=== PATIENT | male | born 1950 | race Caucasian/White ===

== ENCOUNTER 2017-01-27 09:22 | Outpatient (CLI) | payer MEDICARE, MEDICAID ==
[~2017-01-27 09:22] MED LIST: AMIT50TA3 PO; ATOR20TA66 PO; BISA10SU8 RC; CLOP75TA15 PO; DOCU-28 PO; FAMO-128 PO; FERR-106 PO; FLO0.4C PO; INSU100V5 SUBCUT; LYR75C PO; MAGN400O6 PO; MULT-38 PO; NA P133E4 RC; OXYC-134 PO; OXYC10TA57 PO; POTA20TA19 PO
== END 2017-01-27 23:59 | disposition home or self-care (01) ==
LOC: RAD 09:22
PROVIDERS: ATTEND Emergency Medicine
DX: E11.621 Type 2 diabetes mellitus with foot ulcer (principal); L97.419 Non-pressure chronic ulcer of right heel and midfoot with unspecified severity; L97.429 Non-pressure chronic ulcer of left heel and midfoot with unspecified severity; E11.22 Type 2 diabetes mellitus with diabetic chronic kidney disease; I12.9 Hypertensive chronic kidney disease with stage 1 through stage 4 chronic kidney disease, or unspecified chronic kidney disease; N18.9 Chronic kidney disease, unspecified; M86.171 Other acute osteomyelitis, right ankle and foot; M86.172 Other acute osteomyelitis, left ankle and foot; I70.25 Atherosclerosis of native arteries of other extremities with ulceration
CPT/HCPCS: 73718

== ENCOUNTER 2017-03-03 09:23 | Outpatient (CLI) | payer OTHER ==
[~2017-03-03 09:23] MED LIST changes: -FERR-106 PO; +FERR325T32 PO
== END 2017-03-03 23:59 | disposition home or self-care (01) ==
LOC: RAD 09:23
PROVIDERS: ATTEND Emergency Medicine
DX: S91.302D Unspecified open wound, left foot, subsequent encounter (principal); S91.301D Unspecified open wound, right foot, subsequent encounter; X58.XXXD Exposure to other specified factors, subsequent encounter
CPT/HCPCS: 78315; A9503

== ENCOUNTER 2017-04-29 09:59 | Inpatient (IN) | payer MEDICARE, MEDICAID ==
[~2017-04-29] VITALS: Ht 182.9 cm; Wt 81.8 kg
[2017-04-29] MEDS ORDERED: normal saline 1000ML IV soln IVB ONE (10:15)
[2017-04-29 10:54] LABS: BASOPHILS % (AUTO) 0.3 % (0-1); EOSINOPHILS # (AUTO) 0.2 X10'3 (0-0.9); EOSINOPHILS % (AUTO) 1.9 % (0-6); HEMATOCRIT 28.5 % (42.0-52.0); HEMOGLOBIN 9.3 g/dl (14.0-17.9); LYMPHOCYTES % (AUTO) 24.8 % (21-51); MEAN CORPUSCULAR HEMOGLOBIN 25.2 PG (27.0-31.0); MEAN CORPUSCULAR HGB CONC 32.5 % (33.0-36.5); MEAN CORPUSCULAR VOLUME 77.4 FL (78-98); MEAN PLATELET VOLUME 7.3 FL (7.4-10.4); MONOCYTES # (AUTO) 0.8 X10'3 (0-0.9); MONOCYTES % (AUTO) 9.6 % (2-12); NEUTROPHILS # (AUTO) 5.2 X10'3 (1.8-7.7); NEUTROPHILS % (AUTO) 63.4 % (42-75); PLATELET COUNT 190 X10'3 (140-440); RED BLOOD COUNT 3.69 X10'6 (4.70-6.10); RED CELL DISTRIBUTION WIDTH 17.1 % (11.5-14.5); WHITE BLOOD COUNT 8.2 X10'3 (4.5-11.0)
[2017-04-29 11:07] LABS: PARTIAL THROMBOPLASTIN TIME 33 SECONDS (22-32); PROTHROMBIN TIME 10.2 SECONDS (9.0-12.0)
[2017-04-29] MEDS ORDERED: NYSPWD TP (11:07)
[2017-04-29] MEDS ORDERED: LANTUS SQ (11:07)
[2017-04-29] MEDS ORDERED: PREG150C PO (11:07)
[2017-04-29] MEDS ORDERED: INSU100C10 SQ (11:07)
[2017-04-29] MEDS ORDERED: OXYC30TA88 PO (11:07)
[2017-04-29] MEDS ORDERED: METO-539 PO (11:07)
[2017-04-29] MEDS ORDERED: ONDA4TAB9 SL (11:07)
[2017-04-29 11:23] LABS: ALANINE AMINOTRANSFERASE 39 U/L (12-78); ALBUMIN 3.1 G/DL (3.4-5.0); ALBUMIN/GLOBULIN RATIO 0.5 (1.1-1.5); ALKALINE PHOSPHATASE 120 IU/L (46-116); ANION GAP 14 (8-16); ASPARTATE AMINO TRANSFERASE 36 U/L (10-37); BILIRUBIN,TOTAL 0.2 MG/DL (0.1-1.0); BLOOD UREA NITROGEN 90 MG/DL (7-18); BUN/CREATININE RATIO 29.8 (5.4-32.0); CALCIUM 9.3 MG/DL (8.5-10.1); CHLORIDE 108 MMOL/L (99-107); CREATININE 3.02 MG/DL (0.60-1.10); GLUCOSE 87 MG/DL (70-104); MAGNESIUM 2.1 MG/DL (1.5-2.4); SODIUM 136 MMOL/L (135-145); TOTAL PROTEIN 9.7 G/DL (6.4-8.2); eGFR 21 ML/MIN
[2017-04-29 11:32] LABS: POTASSIUM 6.5 MMOL/L (3.5-5.1); TOTAL CARBON DIOXIDE 13.8 MMOL/L (24-32)
[2017-04-29] MEDS ORDERED: potassium Cl 40MEQ/NS 500ml 500 ML IV PRN ×2 (12:00)
[2017-04-29] MEDS ORDERED: MORPHINE 2MG in 2ml NS syringe IV PRN (12:00)
[2017-04-29] MEDS ORDERED: magnesium 2GM in 50ml NS 50 ML IV PRN (12:00)
[2017-04-29] MEDS ORDERED: potassium Cl 20 mEq SR tablet PO PRN ×2 (12:00)
[2017-04-29] MEDS ORDERED: acetaminophen 325mg tablet PO PRN (12:00)
[2017-04-29] MEDS ORDERED: magnesium Cl slow-release 64mg tablet PO PRN (12:00)
[2017-04-29] MEDS ORDERED: dextrose 50%-water 50ml dispensing syringe IV PRN ×2 (12:00)
[2017-04-29] MEDS ORDERED: dextrose 50%-water 50ml dispensing syringe IV ONE (12:00)
[2017-04-29] MEDS ORDERED: insulin regular, human 10 units/0.1 ml syringe IV ONE (12:00)
[2017-04-29] MEDS ORDERED: nystatin 15 GM powder TP SCH (12:00)
[2017-04-29] MEDS ORDERED: glucagon, human recombinant 1mg kit SUBCUT PRN (12:00)
[2017-04-29] MEDS ORDERED: dextrose ORAL solution 15 GM/59 ML bottle PO PRN ×2 (12:00)
[2017-04-29] MEDS ORDERED: magnesium hydroxide 30ml (MOM) UD suspension PO PRN (12:00)
[2017-04-29] MEDS ORDERED: ondansetron/PF 4mg/2ml inj IV PRN (12:00)
[2017-04-29] MEDS ORDERED: bisacodyl 10mg suppository rectal RC PRN (12:00)
[2017-04-29] MEDS ORDERED: mag hydrox/Alum hydrox/simeth 30ml oral suspension PO PRN (12:00)
[2017-04-29] MEDS ORDERED: HYDROcodone/acetaminophen 5mg/325mg tablet PO PRN (12:00)
[2017-04-29] MEDS ORDERED: MESSAGE TO PHARMACY PO ONE (12:00)
[2017-04-29] MEDS ORDERED: sodium polystyrene sulfonate 15gm/60ml oral suspension PO ONE (12:00)
[2017-04-29] MEDS ORDERED: calcium chloride 100 MG/1 ML inj IV ONE (12:00)
[2017-04-29] MEDS ORDERED: insulin Lispro (HumaLOG) vial - multi-dose SQ SCH (12:00)
[2017-04-29] MEDS ORDERED: magnesium 4gm in 100ml NS 100 ML IV PRN (12:00)
[2017-04-29] MEDS: normal saline 1000ml 1,000 ML IV SCH ×2 (12:19→22:10)
[2017-04-29 12:46] LABS: HEMOGLOBIN A1C 7.3 % (4.5-6.2)
[2017-04-29] MEDS ORDERED: LIDOcaine 2% 10ml TOPICAL JELLY (Urojet) MM ONE (13:30)
[2017-04-29 14:12] LABS: CLARITY,URINE SLIGHTLY CLOUDY (Clear); COLOR,URINE STRAW (Yellow); GLUCOSE, URINE NEGATIVE (Neg); KETONES,URINE NEGATIVE (Neg); LEUKOCYTE ESTERASE ,URINE NEGATIVE (Neg); NITRITES, URINE NEGATIVE (Neg); OCCULT BLOOD,URINE TRACE-INTACT (Neg); PH,URINE 5.5 (4.8-8.0); PROTEIN,URINE TRACE mg/dl (Neg); UROBILINOGEN,URINE 0.2 E.U/dL (0.2-1.0)
[2017-04-29 14:14] LABS: UA COLLECTION TYPE FOLEY CATH
[2017-04-29 14:19] LABS: BACTERIA,URINE FEW /HPF (Neg); MUCUS STRANDS FEW /LPF (Neg); RBC,URINE 0-2 /HPF (0-2); SQUAMOUS EPITHELIAL CELL,UR FEW /LPF (FEW); WBC,URINE 0-4 /HPF (0-4)
[2017-04-29 19:15] VITALS: BP 118/53
[2017-04-29] MEDS: pregabalin 75mg capsule PO SCH (20:00)
[2017-04-29] MEDS ORDERED: temazepam 15mg capsule PO PRN (21:00)
[2017-04-29] MEDS: insulin glargine (Lantus) pen - multi-dose SQ SCH (21:00)
[2017-04-29] MEDS: heparin, porcine 5000 units/ml vial SQ SCH (22:09)
[2017-04-30] VITALS: BP 111/57
[2017-04-30 05:40] LABS: BASOPHILS % (AUTO) 0.4 % (0-1); EOSINOPHILS # (AUTO) 0.1 X10'3 (0-0.9); EOSINOPHILS % (AUTO) 2.3 % (0-6); HEMATOCRIT 23.8 % (42.0-52.0); HEMOGLOBIN 7.9 g/dl (14.0-17.9); LYMPHOCYTES % (AUTO) 37.3 % (21-51); MEAN CORPUSCULAR HGB CONC 33.4 % (33.0-36.5); MEAN CORPUSCULAR VOLUME 77.9 FL (78-98); MEAN PLATELET VOLUME 7.7 FL (7.4-10.4); MONOCYTES # (AUTO) 0.5 X10'3 (0-0.9); MONOCYTES % (AUTO) 9.2 % (2-12); NEUTROPHILS # (AUTO) 2.7 X10'3 (1.8-7.7); NEUTROPHILS % (AUTO) 50.8 % (42-75); PLATELET COUNT 125 X10'3 (140-440); RED BLOOD COUNT 3.06 X10'6 (4.70-6.10); RED CELL DISTRIBUTION WIDTH 16.8 % (11.5-14.5); WHITE BLOOD COUNT 5.3 X10'3 (4.5-11.0)
[2017-04-30] MEDS: oxyCODONE IR 5mg (immed. release) tablet PO PRN ×2 (05:53→15:05)
[2017-04-30 05:58] LABS: ALBUMIN 2.6 G/DL (3.4-5.0); ANION GAP 15 (8-16); BLOOD UREA NITROGEN 79 MG/DL (7-18); BUN/CREATININE RATIO 28.8 (5.4-32.0); CALCIUM 8.6 MG/DL (8.5-10.1); CHLORIDE 112 MMOL/L (99-107); CREATININE 2.74 MG/DL (0.60-1.10); GLUCOSE 97 MG/DL (70-104); MAGNESIUM 1.8 MG/DL (1.5-2.4); POTASSIUM 5.2 MMOL/L (3.5-5.1); SODIUM 139 MMOL/L (135-145); eGFR 23 ML/MIN
[2017-04-30 06:21] LABS: TOTAL CARBON DIOXIDE 11.8 MMOL/L (24-32)
[2017-04-30 07:00] VITALS: BP 111/53
[2017-04-30] MEDS: K and/or MAG REPLACEMENT MC SCH (08:00)
[2017-04-30] MEDS: pregabalin 75mg capsule PO SCH ×2 (10:04→22:23)
[2017-04-30] MEDS: heparin, porcine 5000 units/ml vial SQ SCH ×2 (10:06→22:17)
[2017-04-30] MEDS: normal saline 1000ml 1,000 ML IV SCH ×2 (10:12→17:58)
[2017-04-30 11:00] VITALS: BP 120/57
[2017-04-30] MEDS ORDERED: PREG150C PO (13:19)
[2017-04-30 20:00] VITALS: BP 124/63
[2017-04-30] MEDS: insulin glargine (Lantus) pen - multi-dose SQ SCH (21:00)
[2017-05-01] VITALS: BP 123/61
[2017-05-01] MEDS: normal saline 1000ml 1,000 ML IV SCH ×3 (01:17→21:03)
[2017-05-01] MEDS: oxyCODONE IR 5mg (immed. release) tablet PO PRN ×3 (05:57→20:46)
[2017-05-01 06:28] LABS: BASOPHILS % (AUTO) 0.5 % (0-1); EOSINOPHILS # (AUTO) 0.1 X10'3 (0-0.9); EOSINOPHILS % (AUTO) 2.3 % (0-6); HEMATOCRIT 23.8 % (42.0-52.0); HEMOGLOBIN 7.9 g/dl (14.0-17.9); LYMPHOCYTES # (AUTO) 2.2 X10'3 (1.1-4.8); LYMPHOCYTES % (AUTO) 42.3 % (21-51); MEAN CORPUSCULAR HEMOGLOBIN 25.8 PG (27.0-31.0); MEAN CORPUSCULAR HGB CONC 33.1 % (33.0-36.5); MEAN CORPUSCULAR VOLUME 77.8 FL (78-98); MEAN PLATELET VOLUME 7.8 FL (7.4-10.4); MONOCYTES # (AUTO) 0.5 X10'3 (0-0.9); MONOCYTES % (AUTO) 9.7 % (2-12); NEUTROPHILS # (AUTO) 2.3 X10'3 (1.8-7.7); NEUTROPHILS % (AUTO) 45.2 % (42-75); PLATELET COUNT 136 X10'3 (140-440); RED BLOOD COUNT 3.06 X10'6 (4.70-6.10); RED CELL DISTRIBUTION WIDTH 16.9 % (11.5-14.5); WHITE BLOOD COUNT 5.1 X10'3 (4.5-11.0)
[2017-05-01 06:49] LABS: ALBUMIN 2.6 G/DL (3.4-5.0); ANION GAP 14 (8-16); BLOOD UREA NITROGEN 71 MG/DL (7-18); BUN/CREATININE RATIO 27.8 (5.4-32.0); CALCIUM 8.5 MG/DL (8.5-10.1); CHLORIDE 113 MMOL/L (99-107); CREATININE 2.55 MG/DL (0.60-1.10); GLUCOSE 147 MG/DL (70-104); MAGNESIUM 1.7 MG/DL (1.5-2.4); POTASSIUM 4.1 MMOL/L (3.5-5.1); SODIUM 141 MMOL/L (135-145); eGFR 25 ML/MIN
[2017-05-01 07:20] LABS: TOTAL CARBON DIOXIDE 14.3 MMOL/L (24-32)
[2017-05-01 07:30] VITALS: BP 111/57
[2017-05-01] MEDS: K and/or MAG REPLACEMENT MC SCH (08:00)
[2017-05-01] MEDS: pregabalin 75mg capsule PO SCH ×2 (08:34→22:22)
[2017-05-01] MEDS: heparin, porcine 5000 units/ml vial SQ SCH ×2 (08:34→21:02)
[2017-05-01 12:14] VITALS: BP 132/67
[2017-05-01] MEDS: sodium bicarbonate 650mg tablet PO SCH ×2 (13:45→20:46)
[2017-05-01 18:30] VITALS: BP 113/61
[2017-05-01] MEDS: insulin glargine (Lantus) pen - multi-dose SQ SCH (22:23)
[2017-05-02] VITALS: BP 119/63
[2017-05-02] MEDS: oxyCODONE IR 5mg (immed. release) tablet PO PRN ×4 (03:32→16:54)
[2017-05-02 05:55] LABS: BASOPHILS % (AUTO) 0.6 % (0-1); EOSINOPHILS # (AUTO) 0.2 X10'3 (0-0.9); EOSINOPHILS % (AUTO) 4.3 % (0-6); HEMATOCRIT 23.6 % (42.0-52.0); HEMOGLOBIN 7.7 g/dl (14.0-17.9); LYMPHOCYTES # (AUTO) 1.8 X10'3 (1.1-4.8); LYMPHOCYTES % (AUTO) 35.7 % (21-51); MEAN CORPUSCULAR HEMOGLOBIN 25.7 PG (27.0-31.0); MEAN CORPUSCULAR HGB CONC 32.5 % (33.0-36.5); MEAN CORPUSCULAR VOLUME 78.9 FL (78-98); MEAN PLATELET VOLUME 7.8 FL (7.4-10.4); MONOCYTES # (AUTO) 0.4 X10'3 (0-0.9); MONOCYTES % (AUTO) 8.7 % (2-12); NEUTROPHILS # (AUTO) 2.5 X10'3 (1.8-7.7); NEUTROPHILS % (AUTO) 50.7 % (42-75); PLATELET COUNT 127 X10'3 (140-440); RED BLOOD COUNT 2.99 X10'6 (4.70-6.10); RED CELL DISTRIBUTION WIDTH 17.1 % (11.5-14.5)
[2017-05-02 06:46] LABS: ALBUMIN 2.5 G/DL (3.4-5.0); ANION GAP 14 (8-16); BLOOD UREA NITROGEN 60 MG/DL (7-18); BUN/CREATININE RATIO 25.8 (5.4-32.0); CALCIUM 8.4 MG/DL (8.5-10.1); CHLORIDE 112 MMOL/L (99-107); CREATININE 2.33 MG/DL (0.60-1.10); GLUCOSE 101 MG/DL (70-104); MAGNESIUM 1.6 MG/DL (1.5-2.4); POTASSIUM 3.4 MMOL/L (3.5-5.1); SODIUM 139 MMOL/L (135-145); eGFR 28 ML/MIN
[2017-05-02 06:58] LABS: TOTAL CARBON DIOXIDE 12.8 MMOL/L (24-32)
[2017-05-02 07:30] VITALS: BP 111/68
[2017-05-02] MEDS: sodium bicarbonate 650mg tablet PO SCH ×3 (07:50→20:34)
[2017-05-02] MEDS: heparin, porcine 5000 units/ml vial SQ SCH (07:52)
[2017-05-02] MEDS: K and/or MAG REPLACEMENT MC SCH (08:00)
[2017-05-02] MEDS: pregabalin 75mg capsule PO SCH ×2 (08:00→20:34)
[2017-05-02] MEDS: normal saline 1000ml 1,000 ML IV SCH (09:58)
[2017-05-02 11:00] VITALS: BP 142/67
[2017-05-02 18:00] VITALS: BP 129/70
[2017-05-02] MEDS: insulin glargine (Lantus) pen - multi-dose SQ SCH (21:00)
[2017-05-02 23:30] VITALS: BP 146/80
[2017-05-03 05:13] LABS: BASOPHILS % (AUTO) 0.5 % (0-1); EOSINOPHILS # (AUTO) 0.2 X10'3 (0-0.9); EOSINOPHILS % (AUTO) 3.4 % (0-6); HEMATOCRIT 22.2 % (42.0-52.0); HEMOGLOBIN 7.3 g/dl (14.0-17.9); LYMPHOCYTES % (AUTO) 41.3 % (21-51); MEAN CORPUSCULAR HEMOGLOBIN 25.7 PG (27.0-31.0); MEAN CORPUSCULAR HGB CONC 32.9 % (33.0-36.5); MEAN CORPUSCULAR VOLUME 78.1 FL (78-98); MEAN PLATELET VOLUME 7.9 FL (7.4-10.4); MONOCYTES # (AUTO) 0.4 X10'3 (0-0.9); MONOCYTES % (AUTO) 8.8 % (2-12); NEUTROPHILS # (AUTO) 2.2 X10'3 (1.8-7.7); PLATELET COUNT 129 X10'3 (140-440); RED BLOOD COUNT 2.84 X10'6 (4.70-6.10); RED CELL DISTRIBUTION WIDTH 16.7 % (11.5-14.5); WHITE BLOOD COUNT 4.7 X10'3 (4.5-11.0)
[2017-05-03 05:35] LABS: ALBUMIN 2.4 G/DL (3.4-5.0); ANION GAP 14 (8-16); BLOOD UREA NITROGEN 52 MG/DL (7-18); BUN/CREATININE RATIO 23.1 (5.4-32.0); CALCIUM 8.3 MG/DL (8.5-10.1); CHLORIDE 116 MMOL/L (99-107); CREATININE 2.25 MG/DL (0.60-1.10); GLUCOSE 136 MG/DL (70-104); MAGNESIUM 1.5 MG/DL (1.5-2.4); POTASSIUM 3.1 MMOL/L (3.5-5.1); SODIUM 143 MMOL/L (135-145); eGFR 29 ML/MIN
[2017-05-03 05:42] LABS: TOTAL CARBON DIOXIDE 13.3 MMOL/L (24-32)
[2017-05-03] MEDS ORDERED: normal saline 1000ml 1,000 ML IV SCH (06:05)
[2017-05-03] MEDS: K and/or MAG REPLACEMENT MC SCH (08:00)
[2017-05-03] MEDS: sodium bicarbonate 650mg tablet PO SCH ×3 (08:09→21:09)
[2017-05-03] MEDS: pregabalin 75mg capsule PO SCH ×2 (08:09→21:11)
[2017-05-03] MEDS: oxyCODONE IR 5mg (immed. release) tablet PO PRN ×3 (08:11→21:46)
[2017-05-03 08:18] VITALS: BP 141/76
[2017-05-03 11:30] VITALS: BP 111/57
[2017-05-03] MEDS ORDERED: potassium Cl 40MEQ/NS 500ml 500 ML IV PRN ×2 (11:55)
[2017-05-03] MEDS ORDERED: magnesium 4gm in 100ml NS 100 ML IV PRN (11:55)
[2017-05-03] MEDS ORDERED: magnesium Cl slow-release 64mg tablet PO PRN (11:55)
[2017-05-03] MEDS ORDERED: magnesium 2GM in 50ml NS 50 ML IV PRN (11:55)
[2017-05-03] MEDS: potassium Cl 20 mEq SR tablet PO PRN ×3 (13:19→21:11)
[2017-05-03 19:00] VITALS: BP 153/83
[2017-05-03] MEDS: insulin glargine (Lantus) pen - multi-dose SQ SCH (21:00)
[2017-05-04] VITALS: BP 119/64
[2017-05-04 05:11] LABS: BASOPHILS % (AUTO) 0.6 % (0-1); EOSINOPHILS # (AUTO) 0.1 X10'3 (0-0.9); EOSINOPHILS % (AUTO) 2.8 % (0-6); HEMATOCRIT 23.2 % (42.0-52.0); HEMOGLOBIN 7.6 g/dl (14.0-17.9); LYMPHOCYTES # (AUTO) 1.6 X10'3 (1.1-4.8); MEAN CORPUSCULAR HEMOGLOBIN 25.6 PG (27.0-31.0); MEAN CORPUSCULAR HGB CONC 32.9 % (33.0-36.5); MEAN CORPUSCULAR VOLUME 77.9 FL (78-98); MEAN PLATELET VOLUME 7.6 FL (7.4-10.4); MONOCYTES # (AUTO) 0.5 X10'3 (0-0.9); NEUTROPHILS # (AUTO) 2.8 X10'3 (1.8-7.7); NEUTROPHILS % (AUTO) 55.6 % (42-75); PLATELET COUNT 128 X10'3 (140-440); RED BLOOD COUNT 2.97 X10'6 (4.70-6.10); RED CELL DISTRIBUTION WIDTH 16.5 % (11.5-14.5)
[2017-05-04 05:24] LABS: ALBUMIN 2.5 G/DL (3.4-5.0); ANION GAP 16 (8-16); BLOOD UREA NITROGEN 44 MG/DL (7-18); BUN/CREATININE RATIO 19.9 (5.4-32.0); CALCIUM 8.4 MG/DL (8.5-10.1); CHLORIDE 114 MMOL/L (99-107); CREATININE 2.21 MG/DL (0.60-1.10); GLUCOSE 110 MG/DL (70-104); MAGNESIUM 1.5 MG/DL (1.5-2.4); POTASSIUM 3.2 MMOL/L (3.5-5.1); SODIUM 142 MMOL/L (135-145); eGFR 30 ML/MIN
[2017-05-04 05:26] LABS: TOTAL CARBON DIOXIDE 12.4 MMOL/L (24-32)
[2017-05-04 07:41] VITALS: BP 136/77
[2017-05-04] MEDS: sodium bicarbonate 650mg tablet PO SCH ×3 (07:58→20:22)
[2017-05-04] MEDS: pregabalin 75mg capsule PO SCH ×2 (07:59→20:22)
[2017-05-04] MEDS: potassium Cl 20 mEq SR tablet PO PRN ×3 (07:59→17:01)
[2017-05-04] MEDS: K and/or MAG REPLACEMENT MC SCH (08:00)
[2017-05-04 11:30] VITALS: BP 139/90
[2017-05-04] MEDS: oxyCODONE IR 5mg (immed. release) tablet PO PRN ×2 (12:37→20:27)
[2017-05-04] MEDS ORDERED: SODI650T29 PO (13:50)
[2017-05-04 18:30] VITALS: BP 155/86
[2017-05-04] MEDS: insulin glargine (Lantus) pen - multi-dose SQ SCH (20:57)
[2017-05-05] VITALS: BP 137/68
[2017-05-05 05:03] LABS: MAGNESIUM 1.5 MG/DL (1.5-2.4)
[2017-05-05 05:05] LABS: POTASSIUM 2.7 MMOL/L (3.5-5.1)
[2017-05-05 07:00] VITALS: BP 145/82
[2017-05-05] MEDS: K and/or MAG REPLACEMENT MC SCH (08:00)
[2017-05-05] MEDS: sodium bicarbonate 650mg tablet PO SCH ×2 (08:58→13:57)
[2017-05-05] MEDS: pregabalin 75mg capsule PO SCH (09:01)
[2017-05-05] MEDS: potassium Cl 20 mEq SR tablet PO PRN ×2 (09:05→12:42)
[2017-05-05 12:00] VITALS: BP 132/68
== END 2017-05-05 15:50 | disposition home health service (06) | DRG 682 ==
LOC: ER 09:59 → ED HOLD 11:58 → EDBEDREQ 18:22 → SUR 3N 19:11
PROVIDERS: ADMIT Internal Medicine; ATTEND Internal Medicine
DX: N17.9 Acute kidney failure, unspecified (principal); E43 Unspecified severe protein-calorie malnutrition; E87.2 Acidosis; E11.42 Type 2 diabetes mellitus with diabetic polyneuropathy; D68.69 Other thrombophilia; E11.22 Type 2 diabetes mellitus with diabetic chronic kidney disease; E87.5 Hyperkalemia; E86.0 Dehydration; G80.9 Cerebral palsy, unspecified; N18.4 Chronic kidney disease, stage 4 (severe); D50.9 Iron deficiency anemia, unspecified; E78.00 Pure hypercholesterolemia, unspecified; E78.5 Hyperlipidemia, unspecified; E87.6 Hypokalemia; F44.4 Conversion disorder with motor symptom or deficit; G89.4 Chronic pain syndrome; I12.9 Hypertensive chronic kidney disease with stage 1 through stage 4 chronic kidney disease, or unspecified chronic kidney disease; F32.9 Major depressive disorder, single episode, unspecified; F41.9 Anxiety disorder, unspecified; R79.89 Other specified abnormal findings of blood chemistry; G43.909 Migraine, unspecified, not intractable, without status migrainosus; M10.9 Gout, unspecified; M19.90 Unspecified osteoarthritis, unspecified site; Z68.24 Body mass index [BMI] 24.0-24.9, adult; Z88.6 Allergy status to analgesic agent; Z88.0 Allergy status to penicillin; Z88.1 Allergy status to other antibiotic agents; Z88.8 Allergy status to other drugs, medicaments and biological substances; Z79.4 Long term (current) use of insulin; Z87.11 Personal history of peptic ulcer disease; Z87.442 Personal history of urinary calculi; Z86.14 Personal history of Methicillin resistant Staphylococcus aureus infection
CPT/HCPCS: 36415; 71045; 76775; 80048; 80053; 81001; 82948; 83036; 83605; 83735; 84132; 84145; 85025; 85610; 85730; 87040; 87070; 93005; 96360; 99285; A4315; A4353; A6212; A6213; A6223; A6253; A6255; A6446; A6449; J1644; J1815; J3480; J7030

== ENCOUNTER 2017-05-05 17:54 | Inpatient (IN) | payer MEDICARE, MEDICAID ==
[~2017-05-05] VITALS: Ht 182.9 cm; Wt 100.0 kg
[~2017-05-05 17:54] MED LIST changes: -AMIT50TA3 PO; -ATOR20TA66 PO; -BISA10SU8 RC; -CLOP75TA15 PO; -DOCU-28 PO; -FAMO-128 PO; -FERR325T32 PO; -FLO0.4C PO; +INSU100C10 SQ; -INSU100V5 SUBCUT; +LANTUS SQ; -LYR75C PO; -MAGN400O6 PO; +METO-539 PO; -MULT-38 PO; -NA P133E4 RC; +NYSPWD TP; +ONDA4TAB9 SL; -OXYC-134 PO; -OXYC10TA57 PO; +OXYC30TA88 PO; -POTA20TA19 PO; +PREG150C PO; +SODI650T29 PO
[2017-05-05 18:45] LABS: ALANINE AMINOTRANSFERASE 21 U/L (12-78); ALBUMIN 2.8 G/DL (3.4-5.0); ALBUMIN/GLOBULIN RATIO 0.4 (1.1-1.5); ALKALINE PHOSPHATASE 99 IU/L (46-116); ANION GAP 18 (8-16); ASPARTATE AMINO TRANSFERASE 20 U/L (10-37); BILIRUBIN,TOTAL 0.3 MG/DL (0.1-1.0); BLOOD UREA NITROGEN 47 MG/DL (7-18); BUN/CREATININE RATIO 19.7 (5.4-32.0); CALCIUM 8.7 MG/DL (8.5-10.1); CHLORIDE 112 MMOL/L (99-107); CREATININE 2.39 MG/DL (0.60-1.10); GLUCOSE 133 MG/DL (70-104); SODIUM 141 MMOL/L (135-145); TOTAL PROTEIN 9.1 G/DL (6.4-8.2); eGFR 27 ML/MIN
[2017-05-05 18:48] LABS: POTASSIUM 2.7 MMOL/L (3.5-5.1); TOTAL CARBON DIOXIDE 10.6 MMOL/L (24-32)
[2017-05-05 19:01] LABS: MAGNESIUM 1.6 MG/DL (1.5-2.4)
[2017-05-05] MEDS: potassium 10mEq/100ml NS w/LIDOcaine (10mg/bag) IV SCH ×2 (19:12→20:02)
[2017-05-05 19:13] LABS: BASOPHILS % (AUTO) 0.4 % (0-1); EOSINOPHILS # (AUTO) 0.2 X10'3 (0-0.9); HEMATOCRIT 27.3 % (42.0-52.0); HEMOGLOBIN 9.1 g/dl (14.0-17.9); LYMPHOCYTES # (AUTO) 2.4 X10'3 (1.1-4.8); LYMPHOCYTES % (AUTO) 26.9 % (21-51); MEAN CORPUSCULAR HEMOGLOBIN 25.5 PG (27.0-31.0); MEAN CORPUSCULAR HGB CONC 33.1 % (33.0-36.5); MONOCYTES # (AUTO) 0.7 X10'3 (0-0.9); MONOCYTES % (AUTO) 7.9 % (2-12); NEUTROPHILS # (AUTO) 5.7 X10'3 (1.8-7.7); NEUTROPHILS % (AUTO) 62.8 % (42-75); PLATELET COUNT 173 X10'3 (140-440); RED BLOOD COUNT 3.55 X10'6 (4.70-6.10); RED CELL DISTRIBUTION WIDTH 17.4 % (11.5-14.5)
[2017-05-05 19:20] LABS: ABG BASE EXCESS -17.3 mmol/L (-2.0-3.0); ABG OXYGEN SATURATION 94.2 % (95-98); ABG PCO2 (T) 28.8 mmHg (35.0-48.0); ABG PH (T) 7.158 (7.350-7.450); ABG PO2 (T) 78.7 mmHg (83-108); FCOHb 0.6 % (0.5-1.5); FMetHb 0.3 % (0.3-1.12); FO2Hb 93.4 % (94-100); PATIENT TEMPERATURE 36.8; TOTAL HEMOGLOBIN 9.4 G/dl (14.0-18.0)
[2017-05-05] MEDS ORDERED: normal saline 1000ML IV soln IVB ONE (19:25)
[2017-05-05] MEDS ORDERED: potassium Cl 20 mEq SR tablet PO PRN (21:15)
[2017-05-05] MEDS ORDERED: nystatin 15 GM powder TP SCH (21:15)
[2017-05-05] MEDS ORDERED: acetaminophen 325mg tablet PO PRN (21:15)
[2017-05-05] MEDS ORDERED: ondansetron/PF 4mg/2ml inj IV PRN (21:15)
[2017-05-05 22:50] VITALS: BP 132/64
[2017-05-05] MEDS: sodium bicarbonate (8.4%) inj. 150 MEQ in sodium chloride 0.45% 1,000 ML IV SCH (23:25)
[2017-05-05] MEDS: potassium Cl 40MEQ/NS 500ml 500 ML IV PRN (23:33)
[2017-05-06] MEDS: ondansetron 4mg rapidly disintigrating tab PO SCH ×6 (01:03→22:14)
[2017-05-06] MEDS: heparin, porcine 5000 units/ml vial SQ SCH ×3 (01:03→17:51)
[2017-05-06] MEDS: potassium Cl 40MEQ/NS 500ml 500 ML IV PRN ×3 (03:43→17:49)
[2017-05-06 08:00] VITALS: BP 134/73
[2017-05-06] MEDS: K and/or MAG REPLACEMENT MC SCH (08:16)
[2017-05-06] MEDS: metoprolol succinate 25mg (24-HOUR) SR. Tablet PO SCH ×2 (08:31→22:14)
[2017-05-06] MEDS: pregabalin 75mg capsule PO SCH ×2 (08:34→22:13)
[2017-05-06] MEDS: oxyCODONE IR 5mg (immed. release) tablet PO PRN (08:35)
[2017-05-06 10:12] LABS: BASOPHILS % (AUTO) 0.3 % (0-1); EOSINOPHILS # (AUTO) 0.1 X10'3 (0-0.9); EOSINOPHILS % (AUTO) 1.7 % (0-6); HEMOGLOBIN 8.3 g/dl (14.0-17.9); LYMPHOCYTES # (AUTO) 1.6 X10'3 (1.1-4.8); LYMPHOCYTES % (AUTO) 22.3 % (21-51); MEAN CORPUSCULAR HEMOGLOBIN 25.8 PG (27.0-31.0); MEAN CORPUSCULAR HGB CONC 33.4 % (33.0-36.5); MEAN CORPUSCULAR VOLUME 77.3 FL (78-98); MEAN PLATELET VOLUME 7.4 FL (7.4-10.4); MONOCYTES # (AUTO) 0.5 X10'3 (0-0.9); MONOCYTES % (AUTO) 7.5 % (2-12); NEUTROPHILS # (AUTO) 4.8 X10'3 (1.8-7.7); NEUTROPHILS % (AUTO) 68.2 % (42-75); PLATELET COUNT 154 X10'3 (140-440); RED BLOOD COUNT 3.23 X10'6 (4.70-6.10); RED CELL DISTRIBUTION WIDTH 17.4 % (11.5-14.5); WHITE BLOOD COUNT 7.1 X10'3 (4.5-11.0)
[2017-05-06 10:23] LABS: ALBUMIN 2.6 G/DL (3.4-5.0); ANION GAP 14 (8-16); BLOOD UREA NITROGEN 47 MG/DL (7-18); BUN/CREATININE RATIO 20.9 (5.4-32.0); CALCIUM 8.5 MG/DL (8.5-10.1); CHLORIDE 116 MMOL/L (99-107); CREATININE 2.25 MG/DL (0.60-1.10); SODIUM 143 MMOL/L (135-145); eGFR 29 ML/MIN
[2017-05-06 10:27] LABS: TOTAL CARBON DIOXIDE 12.7 MMOL/L (24-32)
[2017-05-06] MEDS: sodium bicarbonate (8.4%) inj. 150 MEQ in sodium chloride 0.45% 1,000 ML IV SCH ×2 (10:27→20:15)
[2017-05-06 10:28] LABS: GLUCOSE 103 MG/DL (70-104)
[2017-05-06 11:30] VITALS: BP 147/73
[2017-05-06] MEDS: vancomycin inj 1,250 MG in normal saline 250ml IV soln 250 ML IV SCH (17:00)
[2017-05-06] MEDS: levoFLOXACIN-Levaquin 250mg/D5 50 ML IV SCH (17:51)
[2017-05-06 20:00] VITALS: BP 125/67
[2017-05-06] MEDS: insulin glargine (Lantus) pen - multi-dose SQ SCH (21:00)
[2017-05-06] MEDS: docusate sod 100mg capsule PO SCH (22:13)
[2017-05-06] MEDS: diatr meglu/diatrizoate 30ml oral sol.-(3 dose) bottle PO SCH (22:14)
[2017-05-06] MEDS: magnesium hydroxide 30ml (MOM) UD suspension PO SCH (22:14)
[2017-05-07] VITALS (12 sets, daily range): BP systolic 105–138; BP diastolic 52–112
[2017-05-07] MEDS: heparin, porcine 5000 units/ml vial SQ SCH ×3 (00:18→17:00)
[2017-05-07] MEDS: ondansetron 4mg rapidly disintigrating tab PO SCH ×6 (04:00→20:07)
[2017-05-07] MEDS: sodium bicarbonate (8.4%) inj. 150 MEQ in sodium chloride 0.45% 1,000 ML IV SCH ×3 (05:39→23:09)
[2017-05-07 06:12] LABS: BASOPHILS % (AUTO) 0.8 % (0-1); EOSINOPHILS # (AUTO) 0.2 X10'3 (0-0.9); EOSINOPHILS % (AUTO) 3.3 % (0-6); HEMOGLOBIN 7.3 g/dl (14.0-17.9); LYMPHOCYTES # (AUTO) 2.4 X10'3 (1.1-4.8); MEAN CORPUSCULAR HEMOGLOBIN 25.8 PG (27.0-31.0); MEAN CORPUSCULAR HGB CONC 32.9 % (33.0-36.5); MEAN CORPUSCULAR VOLUME 78.2 FL (78-98); MEAN PLATELET VOLUME 7.8 FL (7.4-10.4); MONOCYTES # (AUTO) 0.5 X10'3 (0-0.9); NEUTROPHILS # (AUTO) 2.4 X10'3 (1.8-7.7); NEUTROPHILS % (AUTO) 43.9 % (42-75); PLATELET COUNT 145 X10'3 (140-440); RED BLOOD COUNT 2.82 X10'6 (4.70-6.10); RED CELL DISTRIBUTION WIDTH 17.5 % (11.5-14.5); WHITE BLOOD COUNT 5.5 X10'3 (4.5-11.0)
[2017-05-07 06:23] LABS: ALBUMIN 2.1 G/DL (3.4-5.0); ANION GAP 16 (8-16); BLOOD UREA NITROGEN 43 MG/DL (7-18); BUN/CREATININE RATIO 19.2 (5.4-32.0); CHLORIDE 116 MMOL/L (99-107); CREATININE 2.24 MG/DL (0.60-1.10); GLUCOSE 79 MG/DL (70-104); SODIUM 145 MMOL/L (135-145); eGFR 30 ML/MIN
[2017-05-07] MEDS ORDERED: insulin Lispro (HumaLOG) vial - multi-dose SQ SCH (07:20)
[2017-05-07] MEDS ORDERED: glucagon, human recombinant 1mg kit SUBCUT PRN (07:20)
[2017-05-07] MEDS ORDERED: dextrose ORAL solution 15 GM/59 ML bottle PO PRN (07:20)
[2017-05-07] MEDS ORDERED: MESSAGE TO PHARMACY PO ONE (07:20)
[2017-05-07] MEDS ORDERED: dextrose 50%-water 50ml dispensing syringe IV PRN ×2 (07:20)
[2017-05-07] MEDS ORDERED: insulin regular, human vial - multi-dose SQ SCH (07:20)
[2017-05-07] MEDS: diatr meglu/diatrizoate 30ml oral sol.-(3 dose) bottle PO SCH ×2 (07:27→10:03)
[2017-05-07] MEDS: levoFLOXACIN-Levaquin 250mg/D5 50 ML IV SCH (07:33)
[2017-05-07] MEDS: magnesium hydroxide 30ml (MOM) UD suspension PO SCH ×2 (07:37→20:08)
[2017-05-07] MEDS: potassium Cl 20 mEq SR tablet PO PRN ×3 (07:38→20:08)
[2017-05-07] MEDS: docusate sod 100mg capsule PO SCH ×2 (07:38→20:07)
[2017-05-07] MEDS: pregabalin 75mg capsule PO SCH ×2 (07:39→20:07)
[2017-05-07] MEDS: metoprolol succinate 25mg (24-HOUR) SR. Tablet PO SCH ×2 (07:39→20:08)
[2017-05-07] MEDS: dextrose ORAL solution 15 GM/59 ML bottle PO PRN (07:41)
[2017-05-07] MEDS: oxyCODONE IR 5mg (immed. release) tablet PO PRN ×3 (07:43→08:56)
[2017-05-07] MEDS: K and/or MAG REPLACEMENT MC SCH (07:48)
[2017-05-07] MEDS ORDERED: acetaminophen 325mg tablet PO ONE (09:30)
[2017-05-07] MEDS ORDERED: furosemide 40mg/4ml inj IV ONE (11:30)
[2017-05-07] MEDS ORDERED: neostigmine methylsulfate 1 MG/ML 10ml vial IV ONE (15:40)
[2017-05-07] MEDS: vancomycin inj 1,250 MG in normal saline 250ml IV soln 250 ML IV SCH (17:25)
[2017-05-07] MEDS: insulin glargine (Lantus) pen - multi-dose SQ SCH ×2 (21:00)
[2017-05-08] VITALS: BP 120/63
[2017-05-08] MEDS: potassium Cl 20 mEq SR tablet PO PRN ×3 (00:33→22:19)
[2017-05-08] MEDS: ondansetron 4mg rapidly disintigrating tab PO SCH ×7 (00:34→23:57)
[2017-05-08] MEDS: heparin, porcine 5000 units/ml vial SQ SCH ×4 (00:35→23:56)
[2017-05-08] MEDS: oxyCODONE IR 5mg (immed. release) tablet PO PRN ×3 (01:06→22:28)
[2017-05-08 07:43] VITALS: BP 130/68
[2017-05-08] MEDS: K and/or MAG REPLACEMENT MC SCH (08:00)
[2017-05-08 08:35] LABS: BASOPHILS % (AUTO) 0.7 % (0-1); EOSINOPHILS # (AUTO) 0.1 X10'3 (0-0.9); HEMATOCRIT 25.1 % (42.0-52.0); HEMOGLOBIN 8.5 g/dl (14.0-17.9); LYMPHOCYTES # (AUTO) 1.7 X10'3 (1.1-4.8); LYMPHOCYTES % (AUTO) 35.6 % (21-51); MEAN CORPUSCULAR HEMOGLOBIN 26.6 PG (27.0-31.0); MEAN CORPUSCULAR HGB CONC 33.9 % (33.0-36.5); MEAN CORPUSCULAR VOLUME 78.5 FL (78-98); MEAN PLATELET VOLUME 7.5 FL (7.4-10.4); MONOCYTES # (AUTO) 0.4 X10'3 (0-0.9); MONOCYTES % (AUTO) 8.6 % (2-12); NEUTROPHILS # (AUTO) 2.5 X10'3 (1.8-7.7); NEUTROPHILS % (AUTO) 53.1 % (42-75); PLATELET COUNT 153 X10'3 (140-440); RED CELL DISTRIBUTION WIDTH 16.4 % (11.5-14.5); WHITE BLOOD COUNT 4.7 X10'3 (4.5-11.0)
[2017-05-08 08:44] LABS: ALBUMIN 2.3 G/DL (3.4-5.0); ANION GAP 11 (8-16); BLOOD UREA NITROGEN 36 MG/DL (7-18); BUN/CREATININE RATIO 17.1 (5.4-32.0); CALCIUM 7.9 MG/DL (8.5-10.1); CHLORIDE 113 MMOL/L (99-107); GLUCOSE 80 MG/DL (70-104); POTASSIUM 3.3 MMOL/L (3.5-5.1); SODIUM 144 MMOL/L (135-145); TOTAL CARBON DIOXIDE 20.5 MMOL/L (24-32); eGFR 32 ML/MIN
[2017-05-08] MEDS: levoFLOXACIN-Levaquin 250mg/D5 50 ML IV SCH (09:08)
[2017-05-08] MEDS: pregabalin 75mg capsule PO SCH ×2 (09:12→20:50)
[2017-05-08] MEDS: docusate sod 100mg capsule PO SCH ×2 (09:12→20:50)
[2017-05-08] MEDS: metoprolol succinate 25mg (24-HOUR) SR. Tablet PO SCH ×2 (09:13→20:50)
[2017-05-08] MEDS: magnesium hydroxide 30ml (MOM) UD suspension PO SCH ×2 (09:13→20:50)
[2017-05-08] MEDS: dextrose ORAL solution 15 GM/59 ML bottle PO PRN (12:33)
[2017-05-08 14:00] VITALS: BP 149/85
[2017-05-08] MEDS: sodium bicarbonate (8.4%) inj. 150 MEQ in sodium chloride 0.45% 1,000 ML IV SCH (15:18)
[2017-05-08] MEDS: vancomycin inj 1,250 MG in normal saline 250ml IV soln 250 ML IV SCH (17:36)
[2017-05-08 20:00] VITALS: BP 156/94
[2017-05-08] MEDS ORDERED: neostigmine methylsulfate 1 MG/ML 10ml vial IV SCH (20:00)
[2017-05-08] MEDS: insulin glargine (Lantus) pen - multi-dose SQ SCH ×2 (21:00)
[2017-05-08] MEDS ORDERED: potassium Cl 40MEQ/NS 500ml 500 ML IV PRN ×2 (22:15)
[2017-05-09] VITALS: BP 123/74
[2017-05-09] MEDS: potassium Cl 20 mEq SR tablet PO PRN (02:34)
[2017-05-09] MEDS: sodium bicarbonate (8.4%) inj. 150 MEQ in sodium chloride 0.45% 1,000 ML IV SCH (02:38)
[2017-05-09] MEDS: ondansetron 4mg rapidly disintigrating tab PO SCH ×6 (03:05→23:52)
[2017-05-09 03:21] LABS: BASOPHILS % (AUTO) 0.6 % (0-1); EOSINOPHILS # (AUTO) 0.1 X10'3 (0-0.9); EOSINOPHILS % (AUTO) 2.1 % (0-6); HEMATOCRIT 26.3 % (42.0-52.0); HEMOGLOBIN 8.8 g/dl (14.0-17.9); LYMPHOCYTES # (AUTO) 2.5 X10'3 (1.1-4.8); LYMPHOCYTES % (AUTO) 39.2 % (21-51); MEAN CORPUSCULAR HEMOGLOBIN 26.4 PG (27.0-31.0); MEAN CORPUSCULAR HGB CONC 33.6 % (33.0-36.5); MEAN CORPUSCULAR VOLUME 78.7 FL (78-98); MONOCYTES # (AUTO) 0.6 X10'3 (0-0.9); MONOCYTES % (AUTO) 9.5 % (2-12); NEUTROPHILS # (AUTO) 3.1 X10'3 (1.8-7.7); NEUTROPHILS % (AUTO) 48.6 % (42-75); PLATELET COUNT 177 X10'3 (140-440); RED BLOOD COUNT 3.34 X10'6 (4.70-6.10); RED CELL DISTRIBUTION WIDTH 16.5 % (11.5-14.5); WHITE BLOOD COUNT 6.3 X10'3 (4.5-11.0)
[2017-05-09 03:30] LABS: ALBUMIN 2.2 G/DL (3.4-5.0); ANION GAP 10 (8-16); BLOOD UREA NITROGEN 29 MG/DL (7-18); BUN/CREATININE RATIO 14.2 (5.4-32.0); CALCIUM 7.6 MG/DL (8.5-10.1); CHLORIDE 108 MMOL/L (99-107); CREATININE 2.04 MG/DL (0.60-1.10); GLUCOSE 101 MG/DL (70-104); MAGNESIUM 1.7 MG/DL (1.5-2.4); POTASSIUM 3.5 MMOL/L (3.5-5.1); SODIUM 143 MMOL/L (135-145); TOTAL CARBON DIOXIDE 25.4 MMOL/L (24-32); eGFR 33 ML/MIN
[2017-05-09 08:00] VITALS: BP 124/71
[2017-05-09] MEDS: K and/or MAG REPLACEMENT MC SCH (08:00)
[2017-05-09] MEDS: magnesium hydroxide 30ml (MOM) UD suspension PO SCH ×2 (08:00→19:33)
[2017-05-09] MEDS: docusate sod 100mg capsule PO SCH ×2 (08:00→19:34)
[2017-05-09] MEDS: metoprolol succinate 25mg (24-HOUR) SR. Tablet PO SCH ×2 (08:30→19:34)
[2017-05-09] MEDS: heparin, porcine 5000 units/ml vial SQ SCH ×3 (08:31→23:52)
[2017-05-09] MEDS: pregabalin 75mg capsule PO SCH ×2 (08:31→19:34)
[2017-05-09] MEDS: oxyCODONE IR 5mg (immed. release) tablet PO PRN ×2 (08:32→19:34)
[2017-05-09 11:00] VITALS: BP 125/71
[2017-05-09] MEDS ORDERED: levoFLOXACIN 250mg tablet PO SCH (11:00)
[2017-05-09] MEDS ORDERED: VANCOMYCIN LEVEL IV ONE (16:30)
[2017-05-09] MEDS: vancomycin inj 1,250 MG in normal saline 250ml IV soln 250 ML IV SCH (17:00)
[2017-05-09] MEDS: NUT.TX.GLUC.INTOLER,LAC-FR,REG (BOOST GLUCOSE CONTROL) 237 ML PO SCH (18:00)
[2017-05-09 19:00] VITALS: BP 132/61
[2017-05-09] MEDS: lactobacillus rhamnosus 10,000 MMU CELLS/CAPSULE PO SCH (19:34)
[2017-05-09] MEDS: insulin glargine (Lantus) pen - multi-dose SQ SCH ×2 (21:00)
[2017-05-09 23:30] VITALS: BP 144/77
[2017-05-10] MEDS: oxyCODONE IR 5mg (immed. release) tablet PO PRN ×3 (01:43→20:11)
[2017-05-10] MEDS: ondansetron 4mg rapidly disintigrating tab PO SCH ×6 (03:14→23:08)
[2017-05-10 03:35] LABS: BASOPHILS % (AUTO) 0.1 % (0-1); EOSINOPHILS # (AUTO) 0.1 X10'3 (0-0.9); EOSINOPHILS % (AUTO) 2.3 % (0-6); HEMOGLOBIN 8.3 g/dl (14.0-17.9); LYMPHOCYTES # (AUTO) 2.5 X10'3 (1.1-4.8); LYMPHOCYTES % (AUTO) 39.1 % (21-51); MEAN CORPUSCULAR HEMOGLOBIN 26.6 PG (27.0-31.0); MEAN CORPUSCULAR HGB CONC 33.1 % (33.0-36.5); MEAN CORPUSCULAR VOLUME 80.1 FL (78-98); MEAN PLATELET VOLUME 7.4 FL (7.4-10.4); MONOCYTES # (AUTO) 0.6 X10'3 (0-0.9); MONOCYTES % (AUTO) 9.6 % (2-12); NEUTROPHILS # (AUTO) 3.1 X10'3 (1.8-7.7); NEUTROPHILS % (AUTO) 48.9 % (42-75); PLATELET COUNT 151 X10'3 (140-440); RED BLOOD COUNT 3.12 X10'6 (4.70-6.10); RED CELL DISTRIBUTION WIDTH 16.8 % (11.5-14.5); WHITE BLOOD COUNT 6.3 X10'3 (4.5-11.0)
[2017-05-10 03:45] LABS: ALBUMIN 2.2 G/DL (3.4-5.0); ANION GAP 4 (8-16); BLOOD UREA NITROGEN 24 MG/DL (7-18); BUN/CREATININE RATIO 11.9 (5.4-32.0); CALCIUM 7.8 MG/DL (8.5-10.1); CHLORIDE 106 MMOL/L (99-107); CREATININE 2.02 MG/DL (0.60-1.10); GLUCOSE 141 MG/DL (70-104); MAGNESIUM 1.7 MG/DL (1.5-2.4); SODIUM 140 MMOL/L (135-145); TOTAL CARBON DIOXIDE 30.2 MMOL/L (24-32); eGFR 33 ML/MIN
[2017-05-10 03:52] LABS: POTASSIUM 3.7 MMOL/L (3.5-5.1)
[2017-05-10 07:00] VITALS: BP 130/71
[2017-05-10] MEDS: NUT.TX.GLUC.INTOLER,LAC-FR,REG (BOOST GLUCOSE CONTROL) 237 ML PO SCH ×3 (08:00→18:42)
[2017-05-10] MEDS: K and/or MAG REPLACEMENT MC SCH (08:00)
[2017-05-10] MEDS: magnesium hydroxide 30ml (MOM) UD suspension PO SCH ×2 (09:38→20:00)
[2017-05-10] MEDS: docusate sod 100mg capsule PO SCH ×2 (09:39→20:11)
[2017-05-10] MEDS: metoprolol succinate 25mg (24-HOUR) SR. Tablet PO SCH ×2 (09:42→20:12)
[2017-05-10] MEDS: pregabalin 75mg capsule PO SCH ×2 (09:44→20:11)
[2017-05-10] MEDS: lactobacillus rhamnosus 10,000 MMU CELLS/CAPSULE PO SCH ×2 (09:44→20:12)
[2017-05-10] MEDS: heparin, porcine 5000 units/ml vial SQ SCH ×3 (09:49→23:09)
[2017-05-10 12:16] VITALS: BP 126/70
[2017-05-10] MEDS ORDERED: vancomycin/NS 1 GM ADD-VANTAGE 250 ML IV SCH (17:00)
[2017-05-10 19:55] VITALS: BP 157/86
[2017-05-10] MEDS: insulin glargine (Lantus) pen - multi-dose SQ SCH ×2 (21:00→21:14)
[2017-05-11] VITALS: BP 137/76
[2017-05-11] MEDS: ondansetron 4mg rapidly disintigrating tab PO SCH ×3 (03:08→12:15)
[2017-05-11 03:44] LABS: POTASSIUM 2.9 MMOL/L (3.5-5.1)
[2017-05-11] MEDS: potassium Cl 20 mEq SR tablet PO PRN ×3 (04:01→13:51)
[2017-05-11] MEDS: oxyCODONE IR 5mg (immed. release) tablet PO PRN ×2 (04:09→12:38)
[2017-05-11 04:43] LABS: OSMOLALITY UA 309 MOSM/K (50-1400)
[2017-05-11 07:34] VITALS: BP 133/65
[2017-05-11] MEDS: magnesium hydroxide 30ml (MOM) UD suspension PO SCH (08:00)
[2017-05-11] MEDS: K and/or MAG REPLACEMENT MC SCH (08:00)
[2017-05-11] MEDS: NUT.TX.GLUC.INTOLER,LAC-FR,REG (BOOST GLUCOSE CONTROL) 237 ML PO SCH ×2 (08:00→13:15)
[2017-05-11] MEDS: metoprolol succinate 25mg (24-HOUR) SR. Tablet PO SCH (09:28)
[2017-05-11] MEDS: docusate sod 100mg capsule PO SCH (09:29)
[2017-05-11] MEDS: pregabalin 75mg capsule PO SCH (09:29)
[2017-05-11] MEDS: lactobacillus rhamnosus 10,000 MMU CELLS/CAPSULE PO SCH (09:30)
[2017-05-11] MEDS: heparin, porcine 5000 units/ml vial SQ SCH (09:32)
[2017-05-11 11:09] LABS: ALBUMIN 2.1 G/DL (3.4-5.0); ANION GAP 6 (8-16); BLOOD UREA NITROGEN 25 MG/DL (7-18); BUN/CREATININE RATIO 11.8 (5.4-32.0); CALCIUM 7.8 MG/DL (8.5-10.1); CHLORIDE 103 MMOL/L (99-107); CREATININE 2.12 MG/DL (0.60-1.10); GLUCOSE 158 MG/DL (70-104); POTASSIUM 3.4 MMOL/L (3.5-5.1); SODIUM 138 MMOL/L (135-145); TOTAL CARBON DIOXIDE 29.1 MMOL/L (24-32); eGFR 32 ML/MIN
[2017-05-11 11:52] VITALS: BP 109/70
[2017-05-11] MEDS ORDERED: POTA10TA19 PO (12:34)
[2017-05-13] MEDS ORDERED: VANCOMYCIN LEVEL IV NR (16:30)
== END 2017-05-11 16:21 | disposition home health service (06) | DRG 812 ==
LOC: ER 17:55 → ED HOLD 21:13 → EDBEDREQ 22:25 → SUR 3N 22:50 → CMPBEDREQ 23:48
PROVIDERS: ADMIT Family Medicine; ATTEND Legal Medicine
PROC: 30233N1 Transfusion of Nonautologous Red Blood Cells into Peripheral Vein, Percutaneous Approach (ICD-10-PCS; principal; 2017-05-07)
DX: D50.9 Iron deficiency anemia, unspecified (principal); N17.9 Acute kidney failure, unspecified; E87.2 Acidosis; D68.59 Other primary thrombophilia; E11.22 Type 2 diabetes mellitus with diabetic chronic kidney disease; E11.42 Type 2 diabetes mellitus with diabetic polyneuropathy; E11.69 Type 2 diabetes mellitus with other specified complication; E44.1 Mild protein-calorie malnutrition; M86.68 Other chronic osteomyelitis, other site; L02.818 Cutaneous abscess of other sites; E87.6 Hypokalemia; E78.5 Hyperlipidemia, unspecified; F44.4 Conversion disorder with motor symptom or deficit; I12.9 Hypertensive chronic kidney disease with stage 1 through stage 4 chronic kidney disease, or unspecified chronic kidney disease; F32.9 Major depressive disorder, single episode, unspecified; G43.909 Migraine, unspecified, not intractable, without status migrainosus; K59.09 Other constipation; G89.29 Other chronic pain; M10.9 Gout, unspecified; K63.89 Other specified diseases of intestine; N18.2 Chronic kidney disease, stage 2 (mild); E83.42 Hypomagnesemia; M19.90 Unspecified osteoarthritis, unspecified site; E78.00 Pure hypercholesterolemia, unspecified; G80.9 Cerebral palsy, unspecified; Z74.01 Bed confinement status; Z88.6 Allergy status to analgesic agent; Z88.1 Allergy status to other antibiotic agents; Z88.0 Allergy status to penicillin; Z88.8 Allergy status to other drugs, medicaments and biological substances; Z79.4 Long term (current) use of insulin; Z79.899 Other long term (current) drug therapy; Z87.11 Personal history of peptic ulcer disease; Z87.442 Personal history of urinary calculi; Z82.49 Family history of ischemic heart disease and other diseases of the circulatory system; Z68.29 Body mass index [BMI] 29.0-29.9, adult
CPT/HCPCS: 36415; 36600; 74018; 74176; 80048; 80053; 80202; 82803; 82948; 83605; 83735; 83930; 83935; 84132; 84133; 84145; 85018; 85025; 86885; 86900; 86901; 86920; 87070; 87077; 87186; 93005; 96365; 96366; 97110; 97161; 99285; A6212; A6213; A6446; A6449; J1644; J1815; J1940; J1956; J2405; J2710; J3370; J3480; J7030; P9016; Q9963

== ENCOUNTER 2017-06-15 17:24 | Emergency (ER) | payer MEDICARE, MEDICAID ==
[~2017-06-15] VITALS: Ht 211.5 cm; Wt 81.8 kg
[2017-06-15 19:26] LABS: BASOPHILS % (AUTO) 0.4 % (0-1); EOSINOPHILS # (AUTO) 0.5 X10'3 (0-0.9); EOSINOPHILS % (AUTO) 4.4 % (0-6); HEMATOCRIT 32.3 % (42.0-52.0); HEMOGLOBIN 10.7 g/dl (14.0-17.9); LYMPHOCYTES # (AUTO) 3.4 X10'3 (1.1-4.8); LYMPHOCYTES % (AUTO) 30.7 % (21-51); MEAN CORPUSCULAR HEMOGLOBIN 26.5 PG (27.0-31.0); MEAN CORPUSCULAR HGB CONC 33.2 % (33.0-36.5); MEAN CORPUSCULAR VOLUME 79.7 FL (78-98); MEAN PLATELET VOLUME 8.2 FL (7.4-10.4); NEUTROPHILS # (AUTO) 6.2 X10'3 (1.8-7.7); NEUTROPHILS % (AUTO) 55.5 % (42-75); PLATELET COUNT 193 X10'3 (140-440); RED BLOOD COUNT 4.06 X10'6 (4.70-6.10); RED CELL DISTRIBUTION WIDTH 16.9 % (11.5-14.5); WHITE BLOOD COUNT 11.1 X10'3 (4.5-11.0)
[2017-06-15] MEDS ORDERED: LIDOcaine 2% 10ml TOPICAL JELLY (Urojet) MM ONE (19:35)
[2017-06-15 19:41] LABS: ALANINE AMINOTRANSFERASE 22 U/L (12-78); ALBUMIN 3.1 G/DL (3.4-5.0); ALBUMIN/GLOBULIN RATIO 0.5 (1.1-1.5); ALKALINE PHOSPHATASE 169 IU/L (46-116); ANION GAP 15 (8-16); ASPARTATE AMINO TRANSFERASE 22 U/L (10-37); BILIRUBIN,TOTAL 0.3 MG/DL (0.1-1.0); BLOOD UREA NITROGEN 51 MG/DL (7-18); BUN/CREATININE RATIO 22.8 (5.4-32.0); CALCIUM 9.2 MG/DL (8.5-10.1); CHLORIDE 102 MMOL/L (99-107); CREATININE 2.24 MG/DL (0.60-1.10); GLUCOSE 135 MG/DL (70-104); POTASSIUM 3.2 MMOL/L (3.5-5.1); SODIUM 139 MMOL/L (135-145); TOTAL CARBON DIOXIDE 22.1 MMOL/L (24-32); TOTAL PROTEIN 9.1 G/DL (6.4-8.2); eGFR 30 ML/MIN
[2017-06-15 20:27] LABS: CLARITY,URINE CLOUDY (Clear); COLOR,URINE YELLOW (Yellow); GLUCOSE, URINE NEGATIVE (Neg); KETONES,URINE NEGATIVE (Neg); LEUKOCYTE ESTERASE ,URINE LARGE (Neg); NITRITES, URINE NEGATIVE (Neg); OCCULT BLOOD,URINE MODERATE (Neg); PROTEIN,URINE 100 mg/dl (Neg); UROBILINOGEN,URINE 0.2 E.U/dL (0.2-1.0)
[2017-06-15 20:46] VITALS: BP 138/83
[2017-06-15 20:48] LABS: UA COLLECTION TYPE FOLEY CATH
[2017-06-15 20:59] LABS: BACTERIA,URINE 3+ /HPF (Neg); RBC,URINE 0-2 /HPF (0-2); SQUAMOUS EPITHELIAL CELL,UR FEW /LPF (FEW); WBC CLUMPS,URINE MANY /HPF (NEGATIVE); WBC,URINE TNTC /HPF (0-4)
[2017-06-15] MEDS ORDERED: POTA10TA19 PO (21:57)
[2017-06-15] MEDS ORDERED: CIPR-230 PO (21:57)
== END 2017-06-15 23:15 | disposition home or self-care (01) ==
LOC: ER 17:24
DX: N39.0 Urinary tract infection, site not specified (principal); E11.22 Type 2 diabetes mellitus with diabetic chronic kidney disease; I12.0 Hypertensive chronic kidney disease with stage 5 chronic kidney disease or end stage renal disease; N18.5 Chronic kidney disease, stage 5; E11.42 Type 2 diabetes mellitus with diabetic polyneuropathy; E78.00 Pure hypercholesterolemia, unspecified; G43.909 Migraine, unspecified, not intractable, without status migrainosus; M19.90 Unspecified osteoarthritis, unspecified site; G89.29 Other chronic pain; Z86.14 Personal history of Methicillin resistant Staphylococcus aureus infection; Z98.890 Other specified postprocedural states; Z90.89 Acquired absence of other organs; Z88.0 Allergy status to penicillin; Z88.6 Allergy status to analgesic agent; Z88.1 Allergy status to other antibiotic agents; Z88.8 Allergy status to other drugs, medicaments and biological substances; Z79.899 Other long term (current) drug therapy; Z79.4 Long term (current) use of insulin
CPT/HCPCS: 36415; 80053; 81001; 85025; 87077; 87088; 87186; 99284; A4315